=== PATIENT | male | born 1965 | race Caucasian/White ===

== ENCOUNTER 2017-10-31 12:44 | Outpatient (CLI) | payer OTHER, BC | END 2017-10-31 12:45 | disposition home or self-care (01) | DRG 556 | LOC: CONVCARE 12:44 | PROVIDERS: ATTEND Orthopaedic Surgery | DX: M25.512 Pain in left shoulder (principal) | CPT/HCPCS: 72040 ==

== ENCOUNTER 2018-11-20 10:40 | Emergency (ER) | payer OTHER, BC ==
[2018-11-20] MEDS ORDERED: SOLUMEDROL 125 MG/2 ML 125 MG/2 ML PDS ONE (10:41)
[2018-11-20] MEDS ORDERED: EPINEPHRINE 1:10,000 PREFILL 0.1 MG/ML SOL ONE (10:42)
[2018-11-20] MEDS ORDERED: SOLUMEDROL 125 MG/2 ML 125 MG/2 ML PDS IV ONE (10:42)
[2018-11-20] MEDS ORDERED: EPINEPHRINE 1:1000 AMP 1 MG/ML SOL IM PRN (10:43)
[2018-11-20] MEDS ORDERED: SODIUM CHLORIDE 0.9% 1000ML 1,000 ML IV SCH (10:45)
[2018-11-20 10:49] LABS: BASOPHILS % (AUTO) 1 % (0-3); EOSINOPHILS % (AUTO) 4 % (0-9); HEMATOCRIT 42 % (39-53); HEMOGLOBIN 13.8 gm/dl (13.5-17.7); LYMPHOCYTES % (AUTO) 26.6 % (10-50); MEAN CORPUSCULAR HEMOGLOBIN 27.8 pg (27.0-32.0); MEAN CORPUSCULAR HGB CONC 33.1 gm/dl (32.0-36.0); MEAN CORPUSCULAR VOLUME 84 fL (80-100); MONOCYTES % (AUTO) 6.6 % (0-12); NEUTROPHILS % (AUTO) 60.9 % (37-80)
[2018-11-20 11:11] LABS: ALKALINE PHOSPHATASE 81 IU/L (46-116); ALT 84 IU/L (14-63); AST 26 IU/L (15-37); BLOOD UREA NITROGEN 14 mg/dl (7-18); CALCIUM 9.2 mg/dl (8.5-10.1); CARBON DIOXIDE 26.7 mEq/L (21-32); CHLORIDE 105 mMol/L (98-107); CREATININE 1.04 mg/dl (0.80-1.30); CRP INFLAMMATORY 0.31 mg/dl (0.00-0.33); GLUCOSE 112 mg/dl (74-106); POTASSIUM 3.7 mMol/L (3.5-5.1); SODIUM 140 mMol/L (136-145); TOTAL PROTEIN 7.3 gm/dl (6.4-8.2); TROP I < 0.017 ng/ml (0.000-0.056)
[2018-11-20 11:16] VITALS: TEMP 98.2
[2018-11-20] MEDS ORDERED: MORPHINE SULFATE 10 MG/ML SOL IV ONE (11:31)
[2018-11-20] MEDS ORDERED: MORPHINE SULFATE 10 MG/ML SOL ONE (11:33)
[2018-11-20] MEDS ORDERED: KETOROLAC TROMETHAMINE 30 MG/ML SOL IV ONE (11:46)
[2018-11-20] MEDS ORDERED: KETOROLAC TROMETHAMINE 30 MG/ML SOL ONE (11:47)
[2018-11-20] MEDS ORDERED: DIAZEPAM 5MG/ML SOL IV ONE (11:57)
[2018-11-20] MEDS ORDERED: DIAZEPAM 5 MG TAB PO ONE (12:11)
[2018-11-20] MEDS ORDERED: DIAZEPAM 5 MG TAB ONE (12:14)
[2018-11-20 15:00] VITALS: BP 127/88; PULSE 79; RESP 10; O2SAT 96
== END 2018-11-20 14:28 | disposition home or self-care (01) | DRG 312 ==
LOC: ED 10:40
DX: R55 Syncope and collapse (principal); R42 Dizziness and giddiness; R20.2 Paresthesia of skin; M79.602 Pain in left arm; M79.605 Pain in left leg; M54.2 Cervicalgia; Z98.890 Other specified postprocedural states
CPT/HCPCS: 70450; 72125; 80053; 83880; 84484; 85025; 93005; 96365; 96374; 96375; 99284; 99285; J1885; J2270; J2930; A9270-GY